=== PATIENT | female | born 2000 | race Caucasian/White ===

== ENCOUNTER 2021-04-04 09:54 | Inpatient (IN) | payer OTHER ==
[~2021-04-04] VITALS: Ht 157.5 cm; Wt 110.4 kg
[2021-04-04 10:00] VITALS: BP 111/66
[2021-04-04] MEDS ORDERED: SERTRALINE HYD100 MG PO (10:01)
[2021-04-04] MEDS ORDERED: QUETIAPINE FUM200 MG PO (10:01)
[2021-04-04] MEDS ORDERED: HYDROXYZINE HCL25 MG PO (10:02)
[2021-04-04 11:19] LABS: BASO % 0.2 % (0.0-1.0); EOS # 0.1 10*3/uL (0.0-0.4); EOS % 0.7 % (1.0-4.0); HEMATOCRIT 26.9 % (37.0-47.0); LYMPH # 1.7 10*3/uL (1.3-4.4); LYMPH % 17.1 % (27.0-41.0); MEAN CELL VOLUME 74.9 fl (81.0-99.0); MEAN CORPUSCULAR HGB 21.2 pg (27.0-31.0); MEAN CORPUSCULAR HGB CONC 28.3 g/dl (33.0-37.0); MEAN PLATELET VOLUME 10.3 fl (9.6-12.3); MONO # 0.5 10*3/uL (0.1-1.0); MONO % 5.3 % (3.0-9.0); NEUT # 7.3 10*3/uL (2.3-7.9); NEUT % 75.2 % (47.0-73.0); NUCLEATED RED BLOOD CELL 0.3 % (0.0-0.0); PLATELET COUNT AUTOMATED 319 10*3/uL (130-400); RED BLOOD COUNT 3.59 10*6/uL (4.10-5.10); RED CELL DISTRI WIDTH 19.6 % (0-14.5); WHITE BLOOD COUNT 9.8 10*3/uL (4.8-10.8)
[2021-04-04 11:34] LABS: ALBUMIN 2.8 gm/dl (3.1-4.5); ALKALINE PHOSPHATASE 75 U/L (45-117); BUN 8 mg/dl (7-24); CHLORIDE 104 mmol/L (98-107); CREATININE 1.03 mg/dL (0.55-1.02); POTASSIUM 3.5 mmol/L (3.5-5.1); SGOT/AST 12 IU/L (3-35); SGPT/ALT 22 U/L (12-78); SODIUM 138 mmol/L (136-145); TOTAL PROTEIN 8.1 gm/dL (6.4-8.2)
[2021-04-04 12:34] VITALS: BP 115/63
[2021-04-04 16:00] VITALS: BP 105/63
[2021-04-04 16:20] LABS: BILIRUBIN Negative (Negative); BLOOD 2+ (Negative); CLARITY Clear (Clear); COLOR Yellow (Yellow); GLUCOSE Negative (Negative); KETONE Negative (Negative); LEUKO ESTERASE Negative (Negative); NITRITE Negative (Negative); SPECIFIC GRAVITY >= 1.030 (1.001-1.030); UROBILINOGEN 0.2 E.U./dl (0.0-1.0)
[2021-04-04 16:27] LABS: BACTERIA 1+; EPITHELIAL CELLS 21-30
[2021-04-04 20:00] VITALS: BP 116/63
[2021-04-05] VITALS (12 sets, daily range): BP systolic 101–122; BP diastolic 51–75
[2021-04-05 06:38] LABS: BASO % 0.2 % (0.0-1.0); EOS # 0.1 10*3/uL (0.0-0.4); EOS % 0.7 % (1.0-4.0); HEMATOCRIT 26.4 % (37.0-47.0); LYMPH # 2.7 10*3/uL (1.3-4.4); LYMPH % 25.9 % (27.0-41.0); MEAN CELL VOLUME 74.6 fl (81.0-99.0); MEAN CORPUSCULAR HGB 21.5 pg (27.0-31.0); MEAN CORPUSCULAR HGB CONC 28.8 g/dl (33.0-37.0); MEAN PLATELET VOLUME 10.4 fl (9.6-12.3); MONO # 0.6 10*3/uL (0.1-1.0); MONO % 5.3 % (3.0-9.0); NEUT # 7.1 10*3/uL (2.3-7.9); NEUT % 66.8 % (47.0-73.0); NUCLEATED RED BLOOD CELL 0.2 % (0.0-0.0); PLATELET COUNT AUTOMATED 326 10*3/uL (130-400); RED BLOOD COUNT 3.54 10*6/uL (4.10-5.10); RED CELL DISTRI WIDTH 19.7 % (0-14.5); WHITE BLOOD COUNT 10.6 10*3/uL (4.8-10.8)
[2021-04-05 06:54] LABS: ALBUMIN 2.7 gm/dl (3.1-4.5); BUN 6 mg/dl (7-24); CHLORIDE 105 mmol/L (98-107); CREATININE 1.04 mg/dL (0.55-1.02); IRON 15 ug/dL (50-170); POTASSIUM 3.4 mmol/L (3.5-5.1); SGOT/AST 28 IU/L (3-35); SGPT/ALT 26 U/L (12-78); SODIUM 137 mmol/L (136-145); TOTAL IRON BINDING CAPACITY 280 ug/dl (250-450)
[2021-04-05 06:57] LABS: ALKALINE PHOSPHATASE 71 U/L (45-117); TOTAL PROTEIN 7.9 gm/dL (6.4-8.2)
[2021-04-05 08:48] LABS: FERRITIN 100.3 ng/mL (10.0-291.0); VITAMIN D, 25-HYDROXY 10.5 ng/mL (30-100)
[2021-04-06] VITALS: BP 111/54
[2021-04-06 08:00] VITALS: BP 117/63
[2021-04-06 12:00] VITALS: BP 108/63
[2021-04-06 16:00] VITALS: BP 110/54
[2021-04-06 20:00] VITALS: BP 127/67
[2021-04-07] VITALS: BP 121/64
[2021-04-07 06:40] LABS: BASO % 0.3 % (0.0-1.0); EOS # 0.2 10*3/uL (0.0-0.4); HEMATOCRIT 25.7 % (37.0-47.0); LYMPH # 1.9 10*3/uL (1.3-4.4); LYMPH % 25.7 % (27.0-41.0); MEAN CELL VOLUME 75.8 fl (81.0-99.0); MEAN CORPUSCULAR HGB 20.6 pg (27.0-31.0); MEAN CORPUSCULAR HGB CONC 27.2 g/dl (33.0-37.0); MEAN PLATELET VOLUME 10.2 fl (9.6-12.3); MONO # 0.5 10*3/uL (0.1-1.0); MONO % 6.4 % (3.0-9.0); NEUT # 4.9 10*3/uL (2.3-7.9); NEUT % 64.5 % (47.0-73.0); NUCLEATED RED BLOOD CELL 0.4 % (0.0-0.0); PLATELET COUNT AUTOMATED 308 10*3/uL (130-400); RED BLOOD COUNT 3.39 10*6/uL (4.10-5.10); RED CELL DISTRI WIDTH 19.6 % (0-14.5); WHITE BLOOD COUNT 7.5 10*3/uL (4.8-10.8)
[2021-04-07 06:54] LABS: BUN 6 mg/dl (7-24); CHLORIDE 108 mmol/L (98-107); CREATININE 0.77 mg/dL (0.55-1.02); POTASSIUM 3.8 mmol/L (3.5-5.1); SODIUM 139 mmol/L (136-145)
[2021-04-07 08:00] VITALS: BP 102/60
[2021-04-07 12:00] VITALS: BP 104/60
[2021-04-07] MEDS ORDERED: OMNICEF300 MG PO (12:38)
[2021-04-07] MEDS ORDERED: HYDROCODONE-AC1 EAC1 PO (12:38)
[2021-04-07] MEDS ORDERED: VITAMIN D31250 MCG PO (12:38)
[2021-04-07] MEDS ORDERED: VITAMIN D350 MC2 PO (12:38)
[2021-04-07] MEDS ORDERED: Synthroid,Levo50 MCG PO (12:38)
[2021-04-07] MEDS ORDERED: METRONIDAZOLE500 M1 PO (12:38)
[2021-04-07] MEDS ORDERED: DOXYCYCLINE MO100 M1 PO (12:38)
== END 2021-04-07 13:20 | disposition home or self-care (01) | DRG 371 ==
LOC: 5E 09:54
PROVIDERS: Registered Nurse; ADMIT Internal Medicine; ATTEND Internal Medicine
PROC: 0W9G30Z Drainage of Peritoneal Cavity with Drainage Device, Percutaneous Approach (ICD-10-PCS; principal; 2021-04-05)
DX: K65.1 Peritoneal abscess (principal); J96.01 Acute respiratory failure with hypoxia; E44.0 Moderate protein-calorie malnutrition; F84.0 Autistic disorder; K92.2 Gastrointestinal hemorrhage, unspecified; Z68.41 Body mass index [BMI] 40.0-44.9, adult; N17.9 Acute kidney failure, unspecified; D64.9 Anemia, unspecified; E03.9 Hypothyroidism, unspecified; R00.0 Tachycardia, unspecified; Z83.3 Family history of diabetes mellitus; Z82.49 Family history of ischemic heart disease and other diseases of the circulatory system; Z79.899 Other long term (current) drug therapy

== ENCOUNTER → 2021-04-18 | Outpatient (CLI) | payer OTHER ==
[~2021-04-18] MED LIST: DOXYCYCLINE MO100 M1 PO; HYDROCODONE-AC1 EAC1 PO; HYDROXYZINE HCL25 MG PO; METRONIDAZOLE500 M1 PO; OMNICEF300 MG PO; QUETIAPINE FUM200 MG PO; SERTRALINE HYD100 MG PO; Synthroid,Levo50 MCG PO; VITAMIN D31250 MCG PO; VITAMIN D350 MC2 PO
== END | disposition home or self-care (01) ==
LOC: CT 08:50
PROVIDERS: ATTEND Surgery
DX: K76.0 Fatty (change of) liver, not elsewhere classified (principal); R16.0 Hepatomegaly, not elsewhere classified; R16.1 Splenomegaly, not elsewhere classified